=== PATIENT | female | born 1955 | race Caucasian/White ===

== ENCOUNTER 2021-02-21 08:40 | Emergency (ER) | payer OTHER ==
[2021-02-21 09:57] LABS: Absolute Lymphocytes (CBC) 1.5 K/uL (0.7-4.9); Hematocrit 45.9 % (36.0-45.0); Lymphocytes % 16.2 % (15.3-44.8); RBC Red Blood Cell Count 5.05 M/uL (3.86-4.86)
[2021-02-21 10:00] LABS: Potassium 4.3 mmol/L (3.5-5.1); Uric Acid 9.8 mg/dL (2.6-6.0)
--- NOTE | 2021-02-21 11:11 | RAD REPORT ---
EXAM DESCRIPTION: USExtremity Venous Uni Ltd02/21/2021 10:27 am CLINICAL HISTORY: left leg swelling. COMPARISON: None. FINDINGS: Left common femoral, superficial femoral, popliteal and posterior tibial veins are compre ssible and demonstrate augmentation. Doppler demonstrates good flow. Grayscale, color and spectral analysis performed on all vessels IMPRESSION: No evidence of deep venous thrombosis involving the left lower extremity.
--- NOTE | 2021-02-21 11:47 | RAD REPORT ---
EXAM DESCRIPTION: RAD - Ankle Left 3 View -02/21/2021 9:54 am CLINICAL HISTORY: Left ankle pain FINDINGS: Two bony densities lie inferior to the medial malleolus. The borders are sclerotic. Most l ikely these are the sequela of old trauma. No acute fracture or dislocation is seen. There is prominent soft tissue swelling. Large plantar calcaneal spur
--- NOTE | 2021-02-21 11:49 | RAD REPORT ---
EXAM DESCRIPTION: RAD - Foot Left 3 View - 02/21/2021 9:54 am CLINICAL HISTORY: Left Foot pain FINDINGS: No fracture or dislocation is seen. Soft tissue swelling. 3 millimeter exostosis extends off of the first proximal phalanx
--- NOTE | 2021-02-21 12:11 | ER ---
Nurse's Notes [facility] Name: Ricarda Carr Age: 65 yrs Sex: Female : 1955 Arrival Date: 02/21/2021 Time: 08:41 Bed 13 Private MD: Blas Byers R Diagnosis: Gout, unspecified Presentation: 02/21 08:49 Chief complaint: Patient states: Left foot swelling that started on 02/15/2021 and has ww been taking Tylenol for pain. Denies any injuries. Coronavirus screen: Vaccine status: Patient reports receiving the 2nd dose of the covid vaccine. Client denies travel out of the [place] in the last 14 days. Ebola Screen: Patient negative for fever greater than or equal to 101.5 degrees Fahrenheit, and additional compatible Ebola Virus Disease symptoms Patient denies exposure to infectious person. Initial Sepsis Screen: Does the patient meet any 2 criteria? No. Patient's initial sepsis screen is negative. Does the patient have a suspected source of infection? No. Patient's initial sepsis screen is negative. Risk Assessment: Do you want to hurt yourself or someone else? Patient reports no desire to harm self or others. Onset of symptoms was February 15, 2021. 08:49 Method Of Arrival: Ambulatory ww 08:49 Acuity: ERA 3 ww Triage Assessment: 08:52 General: Appears in no apparent distress. comfortable, Behavior is calm, cooperative, ww appropriate for age. Pain: Complains of pain in left foot. EENT: No deficits noted. No signs and/or symptoms were reported regarding the EENT system. Neuro: No deficits noted. Level of Consciousness is awake, alert, obeys commands, Oriented to person, place, time, situation. Cardiovascular: Denies chest pain. Respiratory: No deficits noted. Airway is patent Respiratory effort is even, unlabored, Respiratory pattern is regular, symmetrical. GI: No deficits noted. No signs and/or symptoms were reported involving the gastrointestinal system. : No deficits noted. No signs and/or symptoms were reported regarding the genitourinary system. Derm: Skin is intact, Reports swelling and pain to left foot. Musculoskeletal: Swelling present in left foot. Historical: - Allergies: 08:52 hydrocodone; ww 08:52 PENICILLINS; ww 08:52 statins; ww - Home Meds: 08:52 olmesartan-hydrochlorothiazide 40-12.5 mg oral tab 1 tab once daily [Active]; diltiazem ww HCl 360 mg Oral cp24 1 cap once daily [Active]; aspirin 81 mg Oral chew 1 tab once daily [Active]; - PMHx: 08:52 Hypertensive disorder; ww - PSHx: 08:52 None; ww - Immunization history:: Client reports receiving the 2nd dose of the Covid vaccine. - Social history:: Smoking status: Patient denies any tobacco usage or history of. Screenin:07 Abuse screen: Denies threats or abuse. Denies injuries from another. Nutritional ic1 screening: No deficits noted. Tuberculosis screening: No symptoms or risk factors identified. Fall Risk None identified. Assessment: 09:07 General: Appears in no apparent distress. Behavior is calm, cooperative, Smells of. ic1 General: Behavior is Smells of. Pain: Complains of pain in left leg Pain began 7 days ago. Neuro: No deficits noted. Cardiovascular: No deficits noted. Respiratory: No deficits noted. GI: No deficits noted. : No deficits noted. EENT: No deficits noted. Derm: No deficits noted. Musculoskeletal: Reports pain in left leg since 7 days ago. Also reports some swelling. Denies trauma or fall recently. Vital Signs: 08:49 BP 145 / 76; Pulse 72; Resp 18; Temp 98.5; Pulse Ox 95% on R/A; Weight 120.2 kg; Height ww 5 ft. 9 in. (175.26 cm); Pain 3/10; 10:03 BP 120 / 69; Pulse 70; Resp 18; Pulse Ox 97% on R/A; ic1 12:19 BP 153 / 79; Pulse 67; Resp 18; Pulse Ox 97% on R/A; ic1 08:49 Body Mass Index 39.13 (120.20 kg, 175.26 cm) ED Course: 08:41 Patient arrived in ED. am2 08:42 Blas Byers MD is Private Physician. am2 08:43 [facility] Larose [facility] 08:43 Maurice Nieto MD is Attending Physician. [facility] 08:52 Triage completed. ww 08:52 Arm band placed on right wrist. ww 09:07 Patient has correct armband on for positive identification. Bed in low position. Call ic1 light in reach. Side rails up X2. 09:21 BMP Sent. ic1 09:21 Uric Acid Sent. ic1 09:21 CBC with Diff Sent. ic1 09:21 Inserted saline lock: 20 gauge in left antecubital area, using aseptic technique. ic1 09:54 Ankle Left 3 View XRAY In Process Unspecified. EDMS 09:54 Foot Left 3 View XRAY In Process Unspecified. EDMS 10:03 Pulse ox on. NIBP on. ic1 10:27 US Extremity Venous Unilateral Ltd In Process Unspecified. EDMS 12:10 Blas Byers MD is Referral Physician. [facility] Administered Medications: No medications were administered Outcome: 12:11 Discharge ordered by . [facility] 12:25 Discharged to home with friend. ic1 12:25 Discharged to home 12:25 Condition: stable 12:25 Discharge instructions given to patient, Instructed on discharge instructions, follow up and referral plans. Demonstrated understanding of instructions, follow-up care. 12:49 Demonstrated understanding of medications, Prescriptions given X 1. ic1 12:49 Patient left the ED. ic1 Signatures: Dispatcher [employer] EDMS Martinez Larose PA PA jmm Moreno, Amanda am2 Wood, Whitney, RN RN Elma Diego RN RN ic1 Corrections: (The following items were deleted from the chart) 08:54 08:52 PMHx: Hypothyroidism; ww ww 08:55 08:49 120.2 kg; Height 5 ft. 9 in.; BMI: 39.1; Pain 3/10; ww ww
--- NOTE | 2021-02-21 12:11 | EDPHYS ---
Physician Documentation [facility] Name: Ricarda Carr Age: 65 yrs Sex: Female : 1955 Arrival Date: 02/21/2021 Time: 08:41 Bed 13 Private MD: Blas Byers R ED Physician Maurice Nieto HPI: 02/21 09:08 This 65 yrs old Female presents to ER via Ambulatory with complaints of left foot jmm swelling. 09:08 The patient presents with pain, swelling. The complaints affect the dorsum of left jmm foot. Onset: The symptoms/episode began/occurred gradually. 09:08 Modifying factors: The symptoms are alleviated by nothing. the symptoms are aggravated jmm by nothing. 09:08 Associated signs and symptoms: Pertinent positives: calf tenderness, swelling. The jmm patient has not experienced similar symptoms in the past. Patient denies known injury. Denies fever, denies shortness of breath. Historical: - Allergies: 08:52 hydrocodone; ww 08:52 PENICILLINS; ww 08:52 statins; ww - Home Meds: 08:52 olmesartan-hydrochlorothiazide 40-12.5 mg oral tab 1 tab once daily [Active]; diltiazem ww HCl 360 mg Oral cp24 1 cap once daily [Active]; aspirin 81 mg Oral chew 1 tab once daily [Active]; - PMHx: 08:52 Hypertensive disorder; ww - PSHx: 08:52 None; ww - Immunization history:: Client reports receiving the 2nd dose of the Covid vaccine. - Social history:: Smoking status: Patient denies any tobacco usage or history of. ROS: 09:08 Constitutional: Negative for fever, chills, and weight loss, Cardiovascular: Negative jmm for chest pain, palpitations, and edema, Respiratory: Negative for shortness of breath, cough, wheezing, and pleuritic chest pain. 09:08 MS/extremity: Positive for pain, swelling. 09:08 All other systems are negative. Exam: 09:08 Constitutional: This is a well developed, well nourished patient who is awake, alert, jmm and in no acute distress. Head/Face: atraumatic. Eyes: EOMI, no conjunctival erythema appreciated ENT: Moist Mucus Membranes Neck: Trachea midline, Supple Chest/axilla: Normal chest wall appearance and motion. Cardiovascular: Regular rate and rhythm. No edema appreciated Respiratory: Normal respirations, no respiratory distress appreciated Back: Normal ROM Skin: General appearance color normal 09:08 Musculoskeletal/extremity: swelling noted to the left foot, mild ttp, full dorsalis pulse, compartments are soft, NVI. 09:08 Skin: Appearance: Color: normal in color. 09:08 Neuro: Orientation: is normal, Mentation: is normal, Memory: is normal. 09:08 Psych: Behavior/mood is pleasant, cooperative. Vital Signs: 08:49 BP 145 / 76; Pulse 72; Resp 18; Temp 98.5; Pulse Ox 95% on R/A; Weight 120.2 kg; Height ww 5 ft. 9 in. (175.26 cm); Pain 3/10; 10:03 BP 120 / 69; Pulse 70; Resp 18; Pulse Ox 97% on R/A; ic1 12:19 BP 153 / 79; Pulse 67; Resp 18; Pulse Ox 97% on R/A; ic1 08:49 Body Mass Index 39.13 (120.20 kg, 175.26 cm) ww MDM: 09:08 Patient medically screened. [facility] 12:06 Data reviewed: vital signs, nurses notes. Counseling: I had a detailed discussion with adwoa the patient and/or guardian regarding: the historical points, exam findings, and any diagnostic results supporting the discharge/admit diagnosis, the need for outpatient follow up, to return to the emergency department if symptoms worsen or persist or if there are any questions or concerns that arise at home. 02/21 09:10 Order name: CBC with Diff; Complete Time: 10:22 [facility] 02/21 09:10 Order name: BMP; Complete Time: 10:03 [facility] 02/21 09:10 Order name: US Extremity Venous Unilateral Ltd; Complete Time: 11:13 [facility] 02/21 09:10 Order name: Ankle Left 3 View XRAY; Complete Time: 11:49 [facility] 02/21 09:10 Order name: Foot Left 3 View XRAY; Complete Time: 11:50 [facility] 02/21 09:10 Order name: Uric Acid; Complete Time: 10:03 [facility] 02/21 09:10 Order name: Saline Lock; Complete Time: 09:21 [facility] Administered Medications: No medications were administered Disposition Summary: 02/21/21 12:11 Discharge Ordered Location: Home jmm Condition: Stable jmm Diagnosis - Gout, unspecified jmm Followup: jmm - With: Blas Byers MD - When: 2 - 3 days - Reason: Recheck today's complaints, Continuance of care, Re-evaluation by your physician Discharge Instructions: - Discharge Summary Sheet jmm - Gout jmm - Low-Purine Eating Plan jmm Forms: - Medication Reconciliation Form jm - Thank You Letter [facility] - Antibiotic Education jm - Prescription Opioid Use jm Prescriptions: - indomethacin 50 mg Oral capsule - take 1 capsule by ORAL route 3 times per day with food; 30 capsule; Refills: 0, jmm Product Selection Permitted Signatures: Dispatcher [employer] Martinez Carroll PA PA jmm Wood, Whitney, RN RN ww Corrections: (The following items were deleted from the chart) 08:54 08:52 PMHx: Hypothyroidism; ww ww
[2021-02-21 12:57] VITALS: TEMP 98.5
[2021-02-21 12:59] VITALS: O2SAT 97
[2021-02-21 13:00] VITALS: BP 153/79
== END 2021-02-21 12:49 | disposition home or self-care (01) ==
LOC: ER 08:40
DX: M10.9 Gout, unspecified (principal); I10 Essential (primary) hypertension; Z79.82 Long term (current) use of aspirin; Z88.0 Allergy status to penicillin; Z88.5 Allergy status to narcotic agent; Z88.8 Allergy status to other drugs, medicaments and biological substances
CPT/HCPCS: 36415; 80048; 84550; 85025; 93971; 99284

== ENCOUNTER 2023-06-21 10:59 | Emergency (ER) | payer OTHER ==
--- NOTE | 2023-06-21 12:08 | EDPHYS ---
Physician Documentation [facility] Name: Ricarda Carr Age: 67 yrs Sex: Female : 1955 Arrival Date: 06/21/2023 Time: 10:59 Bed 11 Private MD: Edith Schuster ED Physician Galindo Navas HPI: 06/20 13:02 This 67 yrs old Female presents to ER via Ambulatory with complaints of Finger Problem. rt 13:02 Patient presents to the ED with redness, swelling to the left ring finger. The patient rt states that the fingernail spontaneously fell off, started more red, swollen. Reports mild pain to the area. Denies other acute complaints, symptoms are moderate severity, no other aggravating or alleviating factors.. Historical: - Allergies: 11:14 HYDROCODONE; iw 11:14 PENICILLINS; iw 11:14 statins; iw - PMHx: 11:14 Hypertensive disorder; Kidney disease; iw - PSHx: 11:14 None; iw - Immunization history:: Adult Immunizations up to date. - Infectious Disease History:: Denies. - Social history:: Smoking status: Patient/guardian denies using tobacco, the patient reports quitting approximately 10 years ago. ROS: 13:02 Constitutional: Negative for fever, chills, and weight loss, Neuro: Negative for rt headache, weakness, numbness, tingling, and seizure, Psych: Negative for depression, anxiety, suicide ideation, homicidal ideation, and hallucinations, 13:02 MS/extremity: Positive for Redness, swelling to the finger, Exam: 13:02 Constitutional: This is a well developed, well nourished patient who is awake, alert, rt and in no acute distress. Head/Face: Normocephalic, atraumatic. Neuro: Awake and alert, GCS 15, oriented to person, place, time, and situation. Cranial nerves II-XII grossly intact. Motor strength 5/5 in all extremities. Sensory grossly intact. Cerebellar exam normal. Normal gait. Psych: Awake, alert, with orientation to person, place and time. Behavior, mood, and affect are within normal limits. 13:02 Musculoskeletal/extremity: Mild swelling to the left ring finger, is not fusiform. There is mild erythema distally on the finger. The proximal portion of the nail seems to be intact,. Vital Signs: 11:12 BP 132 / 71; Pulse 64; Resp 16; Pulse Ox 94% on R/A; Weight 120.2 kg; Height 5 ft. 9 iw in. ; 11:12 Body Mass Index 39.13 (120.20 kg, 175.26 cm) iw MDM: 11:27 Patient medically screened. rt 13:02 Differential Diagnosis Cellulitis. Data reviewed: vital signs, nurses notes. Test rt considered but Not performed: Labs: Only mild infection suspected, do not think labs are indicated.. ED course: The ring was removed due to swelling. I do not suspect flexor tenosynovitis clinically. Will treat patient with antibiotics.. Administered Medications: No medications were administered Disposition Summary: 06/21/23 12:07 Discharge Ordered Notes: Location: Home rt Problem: new rt Symptoms: are unchanged rt Condition: Stable rt Diagnosis - Cellulitis to left ring finger rt Followup: rt - With: Edith Schuster DO - When: 2 - 3 days - Reason: Discharge Instructions: - Discharge Summary Sheet rt - Cellulitis, Adult rt Forms: - Medication Reconciliation Form rt - Antibiotic Education rt - Prescription Opioid Use rt - Patient Portal Instructions rt - Leadership Thank You Letter rt Prescriptions: - Doxycycline Hyclate 100 mg Oral Tablet - take 1 tablet ORAL route every 12 hours; 20 tablet; Refills: 0, Product rt Selection Permitted Signatures: Eda Fish RN RN iw Galindo Navas MD MD rt
--- NOTE | 2023-06-21 12:08 | ER ---
Nurse's Notes [facility] Name: Ricarda Carr Age: 67 yrs Sex: Female : 1955 Arrival Date: 06/21/2023 Time: 10:59 Bed 11 Private MD: Edith Schuster Diagnosis: Cellulitis to left ring finger Presentation: 06/20 11:12 Chief complaint: Patient states: her fingernail on left ring finger fell off a couple iw weeks ago , now there is redness and irritation to the finger tip. Coronavirus screen: At this time, the client does not indicate any symptoms associated with coronavirus-19. Ebola Screen: Patient negative for fever greater than or equal to 101.5 degrees Fahrenheit, and additional compatible Ebola Virus Disease symptoms Patient denies exposure to infectious person. Patient denies travel to an Ebola-affected area in the 21 days before illness onset. No symptoms or risks identified at this time. Initial Sepsis Screen: Does the patient meet any 2 criteria? No. Patient's initial sepsis screen is negative. Does the patient have a suspected source of infection? No. Patient's initial sepsis screen is negative. Risk Assessment: Do you want to hurt yourself or someone else? Patient reports no desire to harm self or others. Onset of symptoms was June 08, 2023. 11:12 Method Of Arrival: Ambulatory iw 11:12 Acuity: ERA 4 iw Historical: - Allergies: 11:14 HYDROCODONE; iw 11:14 PENICILLINS; iw 11:14 statins; iw - PMHx: 11:14 Hypertensive disorder; Kidney disease; iw - PSHx: 11:14 None; iw - Immunization history:: Adult Immunizations up to date. - Infectious Disease History:: Denies. - Social history:: Smoking status: Patient/guardian denies using tobacco, the patient reports quitting approximately 10 years ago. Screenin:03 [facility] ED Fall Risk Assessment (Adult) History of falling in the last 3 months, ph including since admission No falls in past 3 months (0 pts) Confusion or Disorientation No (0 pts) Intoxicated or Sedated No (0 pts) Impaired Gait No (0 pts) Mobility Assist Device Used No (0 pt) Altered Elimination No (0 pt) Score/Fall Risk Level 0 - 2 = Low Risk Oriented to surroundings, Maintained a safe environment, Hourly rounding (assess needs \T\ fall precautionary measures) done. Abuse screen: Denies threats or abuse. Denies injuries from another. Nutritional screening: No deficits noted. Tuberculosis screening: No symptoms or risk factors identified. Assessment: 12:02 General: Appears in no apparent distress. Behavior is calm, cooperative. Pain: Denies ph pain. Neuro: Level of Consciousness is awake, alert, obeys commands, Oriented to person, place, time, situation. Cardiovascular: Capillary refill < 3 seconds in bilateral fingers Patient's skin is warm and dry. Respiratory: Airway is patent Respiratory effort is even, unlabored. Derm: Skin is pink, warm \T\ dry. Derm: Wound noted dorsal aspect of distal phalanx of left ring finger. Vital Signs: 11:12 BP 132 / 71; Pulse 64; Resp 16; Pulse Ox 94% on R/A; Weight 120.2 kg; Height 5 ft. 9 iw in. ; 11:12 Body Mass Index 39.13 (120.20 kg, 175.26 cm) ED Course: 11:02 Patient arrived in ED. rg4 11:02 Edith Schuster DO is Private Physician. rg4 11:03 Galindo Navas MD is Attending Physician. rt 11:14 Triage completed. iw 11:14 Arm band placed on. iw 11:49 Kenzie Cisse, MINISTERIO is Primary Nurse. ph 11:49 Removal of Removed ring from left ring finger. Removed ring Lubricant Patient tolerated ph well. 12:04 Patient has correct armband on for positive identification. Bed in low position. Call ph light in reach. Door closed. Noise minimized. 12:04 No provider procedures requiring assistance completed. Patient did not have IV access ph during this emergency room visit. 12:07 Edith Schuster DO is Referral Physician. rt Administered Medications: No medications were administered Medication: 11:50 VIS not applicable for this client. ph Outcome: 12:07 Discharge ordered by . rt 12:22 Discharged to home ambulatory, ph 12:22 Condition: good 12:22 Discharge instructions given to patient, Instructed on discharge instructions, follow up and referral plans. medication usage, Demonstrated understanding of instructions, follow-up care, Prescriptions given X 1, 12:22 Patient left the ED. ph Signatures: Eda Fish RN RN iw Kenzie Cisse RN RN ph Rozina Castro rg4 Galindo Navas MD MD rt
[2023-06-21 12:42] VITALS: BP 132/71; O2SAT 94
== END 2023-06-21 12:22 | disposition home or self-care (01) ==
LOC: ER 10:59
DX: L03.012 Cellulitis of left finger (principal); Z88.0 Allergy status to penicillin; Z88.5 Allergy status to narcotic agent; Z88.8 Allergy status to other drugs, medicaments and biological substances

== ENCOUNTER 2024-07-02 11:32 | Day surgery (SDC) | payer OTHER ==
[2024-06-28 13:58] LABS: Absolute Basophils 0.1 K/uL (0-0.5); Absolute Eosinophils 0.6 K/uL (0-0.5); Absolute Lymphocytes (CBC) 2.4 K/uL (0.7-4.9); Absolute Monocytes 0.8 K/uL (0.1-1.3); Absolute Neutrophil 6.8 K/uL (1.8-8.0); Basophils % 1.3 % (0-1.3); Eosinophils % 5.2 % (0-4.4); Hematocrit 44.6 % (36.0-45.0); Hemoglobin 15.5 g/dL (12.0-15.0); Lymphocytes % 22.3 % (15.3-44.8); MCH 32.5 pg (27.0-35.0); MCHC 34.7 g/dL (32.0-36.0); MCV 93.6 fL (80-100); Monocytes % 7.4 % (3.3-12.3); Neutrophils % 63.8 % (41.7-73.7); Nucleated Red Blood Cells % 0.1 % (0-0); Platelets 214 thou/uL (152-406); RBC Red Blood Cell Count 4.76 M/uL (3.86-4.86); Red Cell Distribution Width 14.2 % (12.1-15.2)
[2024-06-28 14:12] LABS: Anion Gap 11.3 mEq/L (5.0-15.0); Potassium 4.3 mEq/L (3.5-5.1)
[2024-06-28 16:15] LABS: PT Prothrombin Time 10.7
[2024-06-28 16:16] LABS: Protime INR 0.9
--- NOTE | 2024-06-28 16:21 | RAD REPORT ---
EXAM: Chest Pa And Lat (2 Views) HISTORY: 68 years Female PRE OP COMPARISON: None. FINDINGS: LUNGS/PLEURA: The lungs are clear. No pleural effusions or pneumothorax. No pulmonary edema. CARDIAC/MEDIASTINUM: The cardiac silhouette is within normal limits. UPPER ABDOMEN: No significant abnormality. BONES: Degenerative changes present but not acute osseous abnormality. LINES/TUBES/OTHER: N/A IMPRESSION: No evidence of acute cardiopulmonary disease.
[2024-07-02] MEDS ORDERED: NA CHLORIDE 0.9% 500 ML ONE (11:35)
[2024-07-02] MEDS ORDERED: HEPA 1000U/500MLS 2,000 UNIT/1,000 ML BAG IV ONE (14:58)
[2024-07-02] MEDS ORDERED: HEPARIN 10,000 UNIT/10 ML VIAL IV ONE (14:58)
[2024-07-02] MEDS ORDERED: LIDOCAINE 1% 20 ML MDV ONE (14:59)
[2024-07-02] MEDS ORDERED: HEPARIN 5000 UNIT/ML 1 ML VIAL ONE (14:59)
[2024-07-02] MEDS ORDERED: ATROPINE SULF 1 MG/10 ML SYR IV ONE (14:59)
[2024-07-02] MEDS ORDERED: FENTANYL CITR 100 MCG/2 ML ONE (14:59)
[2024-07-02] MEDS ORDERED: MIDAZOLAM HCL 2 MG/2 ML INJ ONE (14:59)
[2024-07-02] MEDS ORDERED: CLOPIDOGREL 75 MG TABLET ONE (14:59)
[2024-07-02] MEDS ORDERED: ASPIRIN 325 MG TAB ONE (15:00)
[2024-07-02] MEDS ORDERED: NALOXONE 0.4 MG/ML VIAL ONE (15:00)
[2024-07-02] MEDS ORDERED: FLUMAZENIL 0.1 MG/ML (5 mL VIAL) IV ONE (15:00)
[2024-07-02] MEDS ORDERED: TICAGRELOR 90 MG TABLET PO ONE (15:00)
[2024-07-02] MEDS ORDERED: VERAPAMIL HCL 10 MG/4 ML VIAL IV ONE (15:01)
[2024-07-02 19:07] VITALS: BP 148/65; O2SAT 96
--- NOTE | 2024-07-02 20:26 | OP ---
Date of Procedure: 07/02/2024 Surgeon: ОЛЕГ BARNEY Procedure Performed: 1. Selective coronary angiogram. 2. Left heart catheterization. 3. Right heart catheterization. Indication: Unstable angina and shortness of breath. Access: Right radial artery 6-Mosotho and right IJ 7-Mosotho closed with manual pressure. Right radia l access was closed with TR band. Complications: None. Bleeding: Less than 50 mL. Total Sedation Time: 1 hour. Description Of Procedure: After risks, benefits, and alternatives were explained, the patient agreed to the procedure and signed informed consent. The patient was brought into cardiac catheterization laboratory, prepped and draped in usual sterile fashion and I accessed right radial artery using pedi atric micropuncture kit, ultrasound guidance, and placed a 6-Mosotho slender sheath and accessed right IJ using ultrasound guidance and micropuncture kit and placed a 7-Mosotho pinnacle sheath and then to ok a 7-Mosotho balloon-tipped [place] catheter through the IJ access into the right atrium, right ventric le, pulmonary artery and wedge, obtained waveform and pressure and then measured the cardiac output u sing the thermodilutional method and then [place] was removed, access was removed, and manual pressure w as used for closure with good hemostasis. We took a 5-Mosotho Gray 4 catheter through the radial acc ess over J-wire into the aortic root across the aortic valve, measured the LVEDP pullback, recorded a mild gradient, but normal valve area and then engaged left main, took standard views and then the RC A and took standard views and removed the catheter and the sheath, placed TR band with good hemostasi s. Findings: 1. Coronary angiogram. a. The left main is normal. b. LAD; proximal long diffuse 40% stenosis, mid 40% stenosis at the diagonal 2 takeoff, but the a rtery is very large and distally has focal 40% stenosis. Diagonal branches are with luminal irregula rities. c. Left circumflex artery proximally is normal and then the OM is very large. It had a 40% steno sis in the mid segment. The rest of it is normal. Normal other OM branches and the rest of the left circumflex. d. The right coronary artery, it is a large and dominant circulation, proximal 30% and distally t here are 2 or 3 tandem lesions there measuring between 50% and 60% stenosis, but the artery is very l arge, leaving a very large lumen behind and the PDA has mid 40% stenosis. 2. Right heart catheterization numbers: RA pressure was 7, RV pressure was 34/1, mean of 5, PA press ure was 32/6, mean of 18. Pulmonary wedge pressure was 6. LVEDP was 7 mmHg. Conclusion: 1. Moderate coronary artery disease. 2. Normal filling pressures. 3. The aortic valve gradient was 13.6. Cardiac output was 5.7 L/minute and aortic valve area was 3.5 , so there is no . Recommendation: Medical management and stress test in a year. SR/MODL Voice ID: [id number] Report ID: [id number]
--- NOTE | 2024-07-09 12:59 | EKG ---
Test Date: 2024-06-28 Test Time: 13:37:53 Negative Notcher: TAM MEASUREMENT RESULTS: Intervals: Rate: 63 NC: 166 QRSD: 104 QT: 422 QTc: 431 Prather: P: 49 NC: 166 QRS: -24 T: 30 INTERPRETIVE STATEMENTS: Normal sinus rhythm Normal ECG No previous ECG available for comparison Electronically Signed On 07-09-24 12:37:14 CDT by Je Aguilera
== END 2024-07-02 19:14 | disposition home or self-care (01) ==
LOC: CCL 11:32
PROVIDERS: ATTEND Internal Medicine
DX: I25.110 Atherosclerotic heart disease of native coronary artery with unstable angina pectoris (principal); I47.20 Ventricular tachycardia, unspecified; I35.0 Nonrheumatic aortic (valve) stenosis; I10 Essential (primary) hypertension; Z87.891 Personal history of nicotine dependence; Z79.82 Long term (current) use of aspirin; Z79.899 Other long term (current) drug therapy; Z88.0 Allergy status to penicillin; Z88.5 Allergy status to narcotic agent; Z82.49 Family history of ischemic heart disease and other diseases of the circulatory system
CPT/HCPCS: 93005; 85025; 80048; 36415; 85610; 85730; 71046; 93460; 76937; C1893; Q9966; J1644 ×2; J2003; J2250; J3010; J7040; 99152; J0461; J2310